=== PATIENT | female | born 1975 | race Caucasian/White ===

== ENCOUNTER → 2018-09-02 | Day surgery (SDC) | payer BC | END | disposition home or self-care (01) | LOC: FRADUS-SUR 08:04 → EDSTATUS 09:00 | PROVIDERS: ATTEND Obstetrics & Gynecology Reproductive Endocrinology | PROC: BU081ZZ Plain Radiography of Uterus and Fallopian Tubes using Low Osmolar Contrast (ICD-10-PCS; principal; 2018-09-02) | DX: Z31.41 Encounter for fertility testing (principal) | CPT/HCPCS: 58340; 74740-TC-FY; 76000-TC-FY; 84703 ==